=== PATIENT | female | born 1990 | race Caucasian/White ===

== ENCOUNTER → 2016-10-07 | Outpatient (CLI) | payer OTHER ==
[~2016-10-07] MED LIST: CEPH-460 PO; MAKE250I IM; REGL5TAB PO; SPRI28TA PO; ZOFR4TAB3 SL
== END ==
LOC: HPND 10:31
PROVIDERS: ATTEND Obstetrics & Gynecology
DX: O35.2XX0 Maternal care for (suspected) hereditary disease in fetus, not applicable or unspecified (principal); O09.212 Supervision of pregnancy with history of pre-term labor, second trimester; Z3A.19 19 weeks gestation of pregnancy
CPT/HCPCS: 76811; 76817

== ENCOUNTER 2016-10-20 10:38 | Emergency (ER) | payer MEDICAID, OTHER ==
[~2016-10-20] VITALS: Ht 149.9 cm; Wt 65.0 kg
[~2016-10-20 10:38] MED LIST changes: -CEPH-460 PO; -MAKE250I IM; -REGL5TAB PO
[2016-10-20 10:39] VITALS: BP 112/60; PULSE 93; RESP 14; TEMP 98.2; O2SAT 98
--- NOTE | 2016-10-20 11:05 | PD ---
HPI Chief Complaint: GI Complaint Time Seen by Provider: 11:05 Travel History International Travel<30 days: No Contact w/Intl Traveler<30days: No Traveled to known affect area: No History of Present Illness HPI 25 year-old female who is approximately 21 weeks with her second presents to the emergency department for evaluation of nausea, vomiting, and diarrhea since this morning. Denies fever or chills. Patient denies any abdominal pain. No cramping. No vaginal bleeding or discharge. Patient has been having regular movement. She is scheduled for a nonstress test tomorrow. States that she otherwise feels well. She has no other symptoms to report. PFSH Past Medical History Anxiety: Yes ?: Social History Alcohol Use: No Tobacco Use: No Substance Use: No Allergies-Medications (Allergen,Severity, Reaction): Coded Allergies: No Known Allergies (Unverified , 10/20/16) Reported Meds & Prescriptions Reported Meds & Active Scripts Active Reglan (Metoclopramide HCl) 5 Mg Tab 5 Mg PO QID PRN Keflex (Cephalexin) 500 Mg Cap 500 Mg PO Q12H 7 Days Reported [place] Inj (Hydroxyprogesterone Caproate) 250 Mg/Ml Inj 250 Mg IM THURSDAY PRN Review of Systems Except as stated in HPI: all other systems reviewed are Neg Physical Exam Narrative GENERAL: Well-nourished female patient, in no acute distress SKIN: Focused skin assessment warm/dry. HEAD: Atraumatic. Normocephalic. EYES: Pupils equal and round. No scleral icterus. No injection or drainage. ENT: No nasal bleeding or discharge. Mucous membranes pink and moist. NECK: Trachea midline. No JVD. CARDIOVASCULAR: Regular rate and rhythm. No murmur appreciated. RESPIRATORY: No accessory muscle use. Clear to auscultation. Breath sounds equal bilaterally. GASTROINTESTINAL: Abdomen soft, non-tender, nondistended. Hepatic and splenic margins not palpable. MUSCULOSKELETAL: No obvious deformities. No clubbing. No cyanosis. No edema. NEUROLOGICAL: Awake and alert. No obvious cranial nerve deficits. Motor grossly within normal limits. Normal speech. PSYCHIATRIC: Appropriate mood and affect; insight and judgment normal. Data Data Last Documented VS Vital Signs Date Time Temp Pulse Resp B/P Pulse Ox O2 Delivery O2 Flow Rate FiO2 10/20/16 14:44 86 16 109/54 99 10/20/16 11:32 Room Air 10/20/16 10:39 98.2 Orders Complete Blood Count With Diff (10/20/16 11:10) Comprehensive Metabolic Panel (10/20/16 11:10) Lipase (10/20/16 11:10) Urinalysis - C+S If Indicated (10/20/16 11:10) Iv Access Insert/Monitor (10/20/16 11:10) Ecg Monitoring (10/20/16 11:10) Oximetry (10/20/16 11:10) Sodium Chlor 0.9% 1000 Ml Inj (Ns 1000 M (10/20/16 11:10) Sodium Chloride 0.9% Flush (Ns Flush) (10/20/16 11:15) Metoclopramide Inj (Reglan Inj) (10/20/16 11:15) Diphenhydramine Inj (Benadryl Inj) (10/20/16 11:15) Urine Culture (10/20/16 11:35) Sodium Chlor 0.9% 1000 Ml Inj (Ns 1000 M (10/20/16 12:30) Cephalexin (Keflex) (10/20/16 12:30) Labs Laboratory Tests Test 10/20/16 10/20/16 11:30 11:35 White Blood Count 15.0 TH/MM3 Red Blood Count 4.39 MIL/MM3 Hemoglobin 13.7 GM/DL Hematocrit 38.6 % Mean Corpuscular Volume 87.9 FL Mean Corpuscular Hemoglobin 31.1 PG Mean Corpuscular Hemoglobin 35.4 % Concent Red Cell Distribution Width 12.8 % Platelet Count 206 TH/MM3 Mean Platelet Volume 8.4 FL Neutrophils (%) (Auto) 87.8 % Lymphocytes (%) (Auto) 6.5 % Monocytes (%) (Auto) 5.2 % Eosinophils (%) (Auto) 0.3 % Basophils (%) (Auto) 0.2 % Neutrophils # (Auto) 13.2 TH/MM3 Lymphocytes # (Auto) 1.0 TH/MM3 Monocytes # (Auto) 0.8 TH/MM3 Eosinophils # (Auto) 0.0 TH/MM3 Basophils # (Auto) 0.0 TH/MM3 CBC Comment DIFF FINAL Differential Comment Sodium Level 138 MEQ/L Potassium Level 4.1 MEQ/L Chloride Level 108 MEQ/L Carbon Dioxide Level 23.5 MEQ/L Anion Gap 7 MEQ/L Blood Urea Nitrogen 10 MG/DL Creatinine 0.48 MG/DL Estimat Glomerular Filtration 159 ML/MIN Rate Random Glucose 82 MG/DL Calcium Level 8.8 MG/DL Total Bilirubin 0.2 MG/DL Aspartate Amino Transf 26 U/L (AST/SGOT) Alanine Aminotransferase 17 U/L (ALT/SGPT) Alkaline Phosphatase 105 U/L Total Protein 6.8 GM/DL Albumin 3.2 GM/DL Lipase 97 U/L Urine Color YELLOW Urine Turbidity HAZY Urine pH 6.0 Urine Specific [place] 1.019 Urine Protein TRACE mg/dL Urine Glucose (UA) NEG mg/dL Urine Ketones TRACE mg/dL Urine Occult Blood TRACE Urine Nitrite NEG Urine Bilirubin NEG Urine Urobilinogen LESS THAN 2.0 MG/DL Urine Leukocyte Esterase LARGE Urine RBC 9 /hpf Urine WBC 13 /hpf Urine Squamous Epithelial 13 /hpf Cells Urine Bacteria FEW /hpf Urine Mucus FEW /lpf Microscopic Urinalysis Comment CULTURE INDICATED MDM Medical Decision Making Medical Screen Exam Complete: Yes Emergency Medical Condition: Yes Medical Record Reviewed: Yes Differential Diagnosis Gastroenteritis versus nausea and vomiting versus diverticulitis versus electrolyte abnormality Narrative Course 25-year-old female presents to emergency department for evaluation of nausea, vomiting, diarrhea. Patient appears well and without distress. Slightly tachycardic upon presentation however this resolved after normal saline bolus. Leukocytosis of 15, likely secondary to vomiting and . CMP is without acute concern. Urinalysis is hazy with trace ketones, trace occult blood, large leukocyte esterase, 9 RBC, 13 WBC, few bacteria, few mucus, culture is indicated. Patient will be started on by mouth Keflex outpatient. On reassessment, patient verbalizes marked improvement in her symptoms. She has scheduled appointment with her MARKET RESEARCH MANAGER this week. She agrees to return immediately with any acute worsening of symptoms. Diagnosis Primary Impression: UTI (urinary tract infection) Qualified Code: N39.0 - Urinary tract infection without hematuria, site unspecified Additional Impressions: Qualified Code: Z3A.20 - 20 weeks gestation of Nausea & vomiting Qualified Code: R11.2 - Non-intractable vomiting with nausea, unspecified vomiting type Diarrhea Qualified Code: R19.7 - Diarrhea, unspecified type Referrals: [employer] Primary Care Physician Patient Instructions: General Instructions, Urinary Tract Infection in (ED) Additional Instructions: [place] diet Maintain adequate oral hydration Advance diet as tolerated Follow-up with your MARKET RESEARCH MANAGER. Keep your appointment for this week Return immediately to the emergency department with any acute worsening of symptoms Med/Other Pt SpecificInfo: Prescription(s) given Scripts Metoclopramide (Reglan)5 Mg Tab5 Mg PO QID PRN (NAUSEA OR VOMITING) #20 TAB Ref 0 Prov:Sugar Cantu 10/20/16 Cephalexin (Keflex)500 Mg [id number] Mg PO Q12H 7 Days Ref 0 Prov:Sugar Cantu 10/20/16 Disposition: 01 DISCHARGE HOME Condition: Stable Sugar Cantu Oct 20, 2016 11:05
[2016-10-20] MEDS ORDERED: SODIUM CHLOR 0.9% 1000 ML INJ 1,000 ML IV SCH (11:10)
[2016-10-20] MEDS ORDERED: SODIUM CHLORIDE 0.9% FLUSH 10 ML FLUSH IV FLUSH PRN (11:15)
[2016-10-20] MEDS ORDERED: METOCLOPRAMIDE HCL 10 MG/2 ML VIAL IV PUSH ONE (11:15)
[2016-10-20] MEDS ORDERED: diphenhydrAMINE HCL 50 MG/ML VIAL IV PUSH ONE (11:15)
[2016-10-20 11:32] VITALS: BP 112/69; PULSE 88; RESP 16; O2SAT 99
[2016-10-20 11:37] LABS: AUTOMATED NEUTROPHIL # 13.2 TH/MM3 (1.8-7.7); BASOPHIL % 0.2 % (0.0-2.0); EOSINOPHIL % 0.3 % (0.0-4.0); HEMATOCRIT 38.6 % (35.0-46.0); HEMO FLAGS DIFF FINAL; LYMPH % 6.5 % (9.0-44.0); MEAN CELL VOLUME 87.9 FL (80.0-100.0); MEAN CORPUSCULAR HEMOGLOBIN 31.1 PG (27.0-34.0); MEAN CORPUSCULAR HGB CONC 35.4 % (32.0-36.0); MONO % 5.2 % (0.0-8.0); NEUT % 87.8 % (16.0-70.0); PLATELET COUNT 206 TH/MM3 (150-450); RED BLOOD COUNT 4.39 MIL/MM3 (4.00-5.30); RED CELL DISTRIBUTION WIDTH 12.8 % (11.6-17.2)
[2016-10-20] MEDS ORDERED: MAKE250I IM (11:49)
[2016-10-20 12:01] LABS: ALKALINE PHOSPHATASE 105 U/L (45-117); TOTAL BILIRUBIN ADULT 0.2 MG/DL (0.2-1.0)
[2016-10-20 12:03] LABS: ALT (GPT) 17 U/L (10-53); ANION GAP 7 MEQ/L (5-15); AST (GOT) 26 U/L (15-37); BICARBONATE 23.5 MEQ/L (21.0-32.0); BLOOD UREA NITROGEN 10 MG/DL (7-18); CHLORIDE 108 MEQ/L (98-107); GLOMERULAR FILTRATION RATE 159 ML/MIN (>89); POTASSIUM 4.1 MEQ/L (3.5-5.1); SODIUM (NA) 138 MEQ/L (136-145)
[2016-10-20 12:13] LABS: BACTERIA, URINE FEW /hpf; BLOOD, URINE TRACE (NEG); COMMENT (UR) CULTURE INDICATED; CULTURE IF INDICATED CULTURE INDICATED; GLUCOSE,URINE NEG (NEG); KETONE, URINE TRACE mg/dL (NEG); MUCUS URINE FEW /lpf (OCC); NITRITE,URINE NEG (NEG); SQUAMOUS EPITHELIAL CELL URINE 13 /hpf (0-5); URINE COLOR YELLOW (YELLW/STRAW)
[2016-10-20] MEDS ORDERED: CEPHALEXIN MONOHYDRATE 500 MG CAP PO ONE (12:30)
[2016-10-20] MEDS ORDERED: SODIUM CHLOR 0.9% 1000 ML INJ 1,000 ML IV ONE (12:30)
[2016-10-20] MEDS ORDERED: CEPH-460 PO (13:21)
[2016-10-20] MEDS ORDERED: REGL5TAB PO (13:21)
[2016-10-20 14:44] VITALS: BP 109/54
== END 2016-10-20 14:50 | disposition home or self-care (01) ==
LOC: NEPE 10:38
DX: O23.42 Unspecified infection of urinary tract in pregnancy, second trimester (principal); B96.89 Other specified bacterial agents as the cause of diseases classified elsewhere; Z3A.20 20 weeks gestation of pregnancy
CPT/HCPCS: 80053; 81001; 83690; 85025; 87086; 96361; 96374; 96375; 99284; J1200; J2765; J7030

== ENCOUNTER → 2016-10-21 | Outpatient (CLI) | payer MEDICAID, OTHER ==
[~2016-10-21] MED LIST changes: +CEPH-460 PO; +MAKE250I IM; +REGL5TAB PO; -SPRI28TA PO; -ZOFR4TAB3 SL
== END ==
LOC: HPND 12:44
PROVIDERS: ATTEND Obstetrics & Gynecology
DX: O35.2XX0 Maternal care for (suspected) hereditary disease in fetus, not applicable or unspecified (principal); O09.212 Supervision of pregnancy with history of pre-term labor, second trimester
CPT/HCPCS: 76815; 76817

== ENCOUNTER → 2016-11-04 | Outpatient (CLI) | payer SELFPAY | LOC: HPND 12:49 | PROVIDERS: ATTEND Obstetrics & Gynecology | DX: O35.2XX0 Maternal care for (suspected) hereditary disease in fetus, not applicable or unspecified (principal); O09.212 Supervision of pregnancy with history of pre-term labor, second trimester; Z3A.23 23 weeks gestation of pregnancy | CPT/HCPCS: 76816; 76817 ==

== ENCOUNTER → 2016-11-19 | Outpatient (CLI) | payer MEDICAID | LOC: HPND 07:59 | PROVIDERS: ATTEND Obstetrics & Gynecology | DX: O35.8XX0 Maternal care for other (suspected) fetal abnormality and damage, not applicable or unspecified (principal); O09.212 Supervision of pregnancy with history of pre-term labor, second trimester | CPT/HCPCS: 76815; 76817 ==

== ENCOUNTER → 2016-12-10 | Outpatient (CLI) | payer MEDICAID | LOC: HPND 10:35 | PROVIDERS: ATTEND Obstetrics & Gynecology | DX: O09.212 Supervision of pregnancy with history of pre-term labor, second trimester (principal); O35.1XX0 Maternal care for (suspected) chromosomal abnormality in fetus, not applicable or unspecified | CPT/HCPCS: 36415; 76816; 76818; 76820; 76821 ==

== ENCOUNTER → 2017-01-20 | Outpatient (CLI) | payer MEDICAID | LOC: HPND 09:32 | PROVIDERS: ATTEND Obstetrics & Gynecology | DX: O35.8XX0 Maternal care for other (suspected) fetal abnormality and damage, not applicable or unspecified (principal); O36.5930 Maternal care for other known or suspected poor fetal growth, third trimester, not applicable or unspecified | CPT/HCPCS: 76816 ==